=== PATIENT | female | born 1955 | race Caucasian/White ===

== ENCOUNTER 2018-04-09 15:00 | Outpatient (CLI) | payer BC | END 2018-04-09 15:05 | LOC: LAB 15:00 | PROVIDERS: ATTEND Family Medicine | DX: Z53.9 Procedure and treatment not carried out, unspecified reason (principal) ==

== ENCOUNTER 2018-04-09 15:02 | Outpatient (CLI) | payer BC ==
[2018-04-09 15:16] LABS: BASOPHILS % 0.3 (0.0-1.5); EOSINOPHILS % 2.5 % (0.0-6.8); MEAN CORPUSCULAR HEMOGLOBIN 30.8 pg (28.0-34.0); MEAN CORPUSCULAR VOLUME 94.4 fl (80.0-100.0); MONOCYTES % 5.2 % (0.0-11.0); NEUTROPHILS # 3.9 # k/uL (1.4-7.7)
[2018-04-10 04:44] LABS: TOTAL PROTEIN 6.8 g/dL (6.0-8.5)
== END 2018-04-09 15:04 ==
LOC: RT 15:02
PROVIDERS: ATTEND Family Medicine
DX: R00.2 Palpitations (principal); I25.10 Atherosclerotic heart disease of native coronary artery without angina pectoris
CPT/HCPCS: 36415; 80053; 80061; 84439; 84443; 84481; 85025; 93225

== ENCOUNTER 2018-05-08 12:27 | Outpatient (CLI) | payer BC | END 2018-05-08 12:30 | LOC: CARD 12:27 | PROVIDERS: ATTEND Internal Medicine Cardiovascular Disease | DX: R06.09 Other forms of dyspnea (principal); R07.9 Chest pain, unspecified; E78.5 Hyperlipidemia, unspecified; E11.9 Type 2 diabetes mellitus without complications | CPT/HCPCS: 99213 ==

== ENCOUNTER 2018-09-17 14:22 | Outpatient (CLI) | payer BC ==
--- NOTE | 2018-09-17 18:02 | Diagnostic Imaging Report ---
AMANDA ACEVEDO [facility] [address] [facility] [address] [place], [place]. 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 History: Evaluate lung olmos. LARYNGITIS X 10 DAYS, COUGH (Hx) Comparison exam: None provided. Findings: PA and lateral views of the chest demonstrates a normal cardiac and mediastinal silhouette. Chronic interstitial changes. No focal infiltrate. No blunting of the costophrenic margins. Osseous structures are appropriate for age. Impression: Chronic interstitial changes. No acute pulmonary process. 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
== END 2018-09-17 14:40 ==
LOC: RAD 14:22
PROVIDERS: ATTEND Family Medicine
DX: R05 Cough (principal)
CPT/HCPCS: 71046